=== PATIENT | female | born 1935 | race Caucasian/White ===

== ENCOUNTER 2017-09-25 17:12 | Emergency (ER) | payer MEDICARE, BC ==
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
[2017-09-25] MEDS ORDERED: TOPICAL LIDOCAINE W/ EPI 5 ML TOP ONE (19:11)
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
== END 2017-09-25 19:39 | disposition home or self-care (01) ==
LOC: ER 17:12
DX: S02.2XXA Fracture of nasal bones, initial encounter for closed fracture (principal); S00.83XA Contusion of other part of head, initial encounter; M54.2 Cervicalgia; V43.52XA Car driver injured in collision with other type car in traffic accident, initial encounter
CPT/HCPCS: 70450; 70486; 72125; 99283; 99284